=== PATIENT | female | born 1990 | race Caucasian/White ===

== ENCOUNTER 2023-06-22 14:23 | Emergency (ER) | payer BC, SELFPAY ==
[2023-06-22 14:37] VITALS: BP 111/72; PULSE 87; RESP 16; TEMP 37.3; O2SAT 100
--- NOTE | 2023-06-22 14:56 | ED.FEMALEGU ---
HPI - Female Genitourinary General Chief complaint: Urogenital-Female Stated complaint: UTI Time Seen by Provider: 06/22/23 14:40 Source: patient Mode of arrival: ambulatory Limitations: no limitations History of Present Illness HPI Narrative: Annie is a 32-year-old female patient presenting to the clinic today with complaints of possible urinary tract infection. She reports over the last week or so she has had burning, frequency, or urgency. She denies any fever chills. She denies any belly pain or flank pain. Related Data Allergies Allergy/AdvReac Type Severity Reaction Status Date / Time No Known Allergies Allergy Verified 06/22/23 14:45 Review of Systems Review of Systems: Pertinent positives per HPI. Patient denies any fever, chills, rash, headache, visual changes, dizziness, cough, runny nose, sore throat, shortness of breath, chest pain, palpitations, nausea, vomiting, diarrhea, constipation, abdominal pain PMFSH Comments At the time of my signature, I reviewed and agree with the nursing past medical, surgical, social, and family history. There is no relevant family history pertinent to the patient complaint. Exam Narrative: General: Well-developed, well nourished, in no apparent distress. Head: Normocephalic, atraumatic. Cardio: Regular rate and rhythm, s1 and s2 normal, no murmur appreciated. Resp: Clear to auscultation bilaterally, no rhonchi, rales, wheezing or rubs. Abdomen: Soft, pliable, bowel sounds present in all quadrants, non-tender to palpation, no organomegly, no CVAT tenderness. Course Course Emergency Course: Portions of this record may have been created with voice recognition software. Level of Care: Express Care Visit Vital Signs Vital signs: Vital Signs Temperature 37.3 C 06/22/23 14:37 Pulse Rate 87 06/22/23 14:37 Respiratory Rate 16 06/22/23 14:37 Blood Pressure 111/72 06/22/23 14:37 Pulse Oximetry 100 06/22/23 14:37 Oxygen Delivery Room Air 06/22/23 14:37 Temperature 37.3 C 06/22/23 14:37 Pulse Rate 87 06/22/23 14:37 Respiratory Rate 16 06/22/23 14:37 Blood Pressure 111/72 06/22/23 14:37 Pulse Oximetry 100 06/22/23 14:37 Oxygen Delivery Room Air 06/22/23 14:37 Vital signs reviewed MDM - Female Genitourinary MDM Narrative Medical decision making narrative: At the time of visit patient is resting comfortably on exam table. Urinalysis was performed and shows 2+ blood and 2+ leukocytes. Will send in prescription for Macrobid and Pyridium. Supportive measures were discussed with the patient she voiced understanding discharge instructions agrees to treatment plan. Differential Diagnosis Differential diagnosis: Likely urinary tract infection and cystitis Lab Data Labs: Urine Glucose Negative Reference Range: Negative Urine Bilirubin Negative Reference Range: Negative Urine Ketone Negative Reference Range: Negative Urine Specific [place] 1.010 Reference Range:1.001-1.035 Urine Blood 2+ Reference Range: Negative * * Urine pH 7.0 Reference Range: 5.0-9.0 Urine Protein Trace Reference Range: Negative Urine Urobilinogen 0.2 Reference Range: 0.2-1.0 Urine Nitrate Negative Reference Range: Negative Urine Leukocyte 2+
== END 2023-06-22 15:17 | disposition home or self-care (01) ==
PROVIDERS: Emergency Provider Nurse Practitioner Family
DX: N39.0 Urinary tract infection, site not specified (principal)
CPT/HCPCS: 81003; 87086; 99203; G0463